=== PATIENT | male | born 1990 | race Caucasian/White ===

== ENCOUNTER 2020-09-29 14:41 | Emergency (ER) | payer BC, SELFPAY ==
--- NOTE | ~2020-09-29 | XR_ITS ---
EXAMINATION: XR chest 2V DATE: 09/29/2020 14:58 INDICATION: Palpitations. Central chest pain. TECHNIQUE: Frontal and lateral views of the chest were obtained. COMPARISON: None. FINDINGS: The chest demonstrates clear lungs without pneumonia, pleural effusion, or pneumothorax. Th e heart size is normal. IMPRESSION: 1. No acute cardiopulmonary disease. Reviewed, dictated and finalized at location A.
--- NOTE | 2020-09-29 14:42 | ECG_ITS ---
Measurements Intervals [place] Rate: 74 P: 40 DE: 143 QRS: 24 QRSD: 97 T: 65 QT: 357 QTc: 398 Interpretive Statements SINUS RHYTHM INCOMPLETE RIGHT BUNDLE BRANCH BLOCK MINIMAL Q WAVES- HIGH LATERAL LEADS BASELINE ARTIFACT- I, III, AVR, AVL, AVF BORDERLINE ECG Electronically Signed On 09-29-2020 14:56:00 CDT by Tray Ingram D.O.
[2020-09-29 14:45] VITALS: BP 118/66; PULSE 85; RESP 18; TEMP 36.4; O2SAT 100
--- NOTE | 2020-09-29 14:52 | PC.NURSE ---
Pt to XRAY via w/c at this time.
[2020-09-29 15:05] LABS: Basophils Absolute Auto 0.1 K/mm3 (0.0-0.1); Eosinophils Absolute Auto 0.4 K/mm3 (0-0.3); Eosinophils Percent Auto 6.4 % (0-4.4); Hematocrit 46.2 % (42.0-52.0); Immature Granulocyte Absolute 0.01 K/mm3 (0.00-0.031); Immature Granulocyte Percent A 0.2 % (0-0.5); Lymphocytes Absolute Auto 2.73 K/mm3 (0.9-3.2); Lymphocytes Percent Auto 42.5 % (18.3-44.2); Mean Corpuscular HGB Conc 32.5 g/dl (32-36); Mean Corpuscular Hemoglobin 30.4 pg (26-34); Mean Corpuscular Volume 93.5 fl (80-100); Mean Platelet Volume 8.9 fl (7.4-10.4); Monocytes Absolute Auto 0.6 K/mm3 (0.1-0.6); Monocytes Percent Auto 9.2 % (2.6-8.5); Neutrophils Absolute Auto 2.6 K/mm3 (1.3-6.7); Neutrophils Percent Auto 39.7 % (45.5-73.1); Platelet Count Result 367 k/mm3 (150-375); Red Blood Count 4.94 M/mm3 (4.6-6.20); Red Cell Distribution Width 12.7 % (11.5-14.5); White Blood Count 6.4 K/mm3 (4.5-10.0)
[2020-09-29 15:16] LABS: Anion Gap 11 mmol/L (8-16); Blood Urea Nitrogen 10 mg/dL (9-20); Calcium 9.8 mg/dL (8.4-10.2); Carbon Dioxide 30 mmol/L (22-30); Chloride 98 mmol/L (98-107); Estimated CRCL calculation 138 ml/min; Estimated Glomerular Filt Rate > 60; Glucose 94 mg/dL (65-110); Potassium 4.1 mmol/L (3.4-5.0); Sodium 139 mmol/L (137-145)
[2020-09-29 15:20] LABS: INR 0.8; Prothrombin Time 11.3 Seconds (11.1-14.7)
[2020-09-29 15:21] LABS: Partial Thromboplastin Time 26.8 SECONDS (22.3-36.8)
[2020-09-29 15:28] LABS: Troponin I < 0.012 ng/mL (0.000-0.034)
--- NOTE | 2020-09-29 17:20 | ED.ARRPALP ---
HPI - Arrhythmia/Palpitations General Chief Complaint: Arrhythmia/Palpitations Stated Complaint: irreg heart beat Time Seen by Provider: 09/29/20 17:11 History of Present Illness HPI narrative: 30 yo male w/ no significant history presents to the ED for palpitations. He reports that he has had frequent irregular beats for the past few days. This is worse at rest. It gets better with activity. It is associated with mild chest pressure. No SOB. He does admit to increased stress/anxiety. Related Data Home Medications Medication Instructions Recorded Confirmed multivitamin 1 tablet PO DAILY 09/29/20 09/29/20 Allergies Allergy/AdvReac Type Severity Reaction Status Date / Time No Known Allergies Allergy Verified 09/29/20 14:50 Review of Systems Review of Systems: All systems reviewed & are unremarkable except as noted in HPI and below Constitutional: Constitutional: Denies chills and Denies fever(s) Cardiovascular: Cardiovascular: Reports chest pain and Reports rapid heart rate Respiratory: Respiratory: Denies dyspnea Gastrointestinal: Gastrointestinal: Denies abdominal pain, Denies nausea and Denies vomiting Neurologic: Denies dizziness and Denies weakness Psychiatric: Psychiatric: Reports anxiety PMFSH Social History Social History Smoking status: Never smoker Gender identity (if verbalized by the patient): Male Exam Const: General: healthy appearing, no acute distress and alert Orientation/consciousness: patient oriented x3 HENMT: Head: normal to inspection Neck: Neck: normal visual inspection and no lymphadenopathy Chest: Chest palpation & inspection: no tenderness Resp: Effort & Inspection: normal respiratory effort Auscultation: clear to auscultation bilaterally, no rales, no rhonchi and no wheezes Cardio: Jugular venous distension: no JVD Rate: regular rate Rhythm: regular rhythm Heart sounds: no murmurs GI: Inspection: non-distended GI Palp: Yes Soft to palpation and No Tenderness to palpation present (GI) Skin: General skin exam: normal color Neuro: General: patient oriented x3 and moves all extremities Speech: normal speech Extrem: General: no edema Psych: Appearance: well kempt Affect: Anxious affect present Course Vital Signs Vital signs: Vital Signs Temperature 36.4 C 09/29/20 14:45 Pulse Rate 85 09/29/20 14:45 Respiratory Rate 18 09/29/20 14:45 Blood Pressure 118/66 09/29/20 14:45 Pulse Oximetry 100 09/29/20 14:45 Temperature 36.4 C 09/29/20 14:45 Pulse Rate 85 09/29/20 14:45 Respiratory Rate 18 09/29/20 14:45 Blood Pressure 118/66 09/29/20 14:45 Pulse Oximetry 100 09/29/20 14:45 MDM - Arrhythmia/Palpitations MDM Narrative Medical decision making narrative: Nothing acute on EKG. Description consistent with PVC, although none were caught on EKG. This also seems to be causing him anxity. The fact that symptoms improve with exertion is reassuring. Differential Diagnosis Differential diagnosis: Likely palpitations Medical Records Attestation: I reviewed the patient's medical records. Lab Data Attestation: I reviewed the patient's lab results. Result diagrams: 09/29/20 14:53 09/29/20 14:53 Labs: Lab Results 09/29/20 09/29/20 09/29/20 Range/Units 14:53 14:53 14:53 WBC 6.4 (4.5-10.0) K/mm3 RBC 4.94 (4.6-6.20) M/mm3 Hgb 15.0 (14.0-18.0) g/dL Hct 46.2 (42.0-52.0) % MCV 93.5 (80-100) fl MCH 30.4 (26-34) pg MCHC 32.5 (32-36) g/dl RDW 12.7 (11.5-14.5) % Plt Count 367 (150-375) k/mm3 MPV 8.9 (7.4-10.4) fl Immature Gran % (Auto) 0.2 (0-0.5) % Neut % (Auto) 39.7 L (45.5-73.1) % Lymph % (Auto) 42.5 (18.3-44.2) % Lyon % (Auto) 9.2 H (2.6-8.5) % Eos % (Auto) 6.4 H (0-4.4) % Baso % (Auto) 2.0 H (0.2-1.2) % Lymph # (Auto) 2.73 (0.9-3.2) K/mm3 Lyon # (Auto) 0.
== END 2020-09-29 19:06 | disposition home or self-care (01) ==
PROVIDERS: Emergency Medicine; Emergency Provider Emergency Medicine; PCP Family Medicine
DX: R00.2 Palpitations (principal)
CPT/HCPCS: 36415; 71046; 80048; 84484; 85025; 85610; 85730; 93005; 99284